=== PATIENT | male | born 1945 | race Caucasian/White ===

== ENCOUNTER 2021-10-03 19:09 | Inpatient (IN) | payer OTHER ==
[~2021-10-03] VITALS: Ht 165.1 cm; Wt 66.7 kg
[2021-10-03] MEDS ORDERED: ALBUTEROL SULFATE 2.5 MG/ 0.5 ML NEBU NEB ONE (19:15)
[2021-10-03] MEDS ORDERED: MAGNESIUM SULFATE 2 GM in IV DEXTROSE 5% 100 ML IV ONE (19:15)
[2021-10-03] MEDS ORDERED: IPRATROPIUM BROMIDE 0.5 MG/2.5 ML NEBU NEB ONE (19:15)
[2021-10-03 19:29] LABS: HEMATOCRIT 57.5 % (36.7-47.1); MEAN CORPUSCULAR HEMOGLOBIN 29.2 uug (23.8-33.4); MEAN CORPUSCULAR VOLUME 91.1 fL (73.0-96.2); PLATELET COUNT (AUTO) 181 K/uL (152-348)
[2021-10-03 19:37] LABS: CARBON DIOXIDE 24 mmol/L (21-32); CHLORIDE 106 mmol/L (98-107); CREATININE 1.8 mg/dL (0.6-1.3); GLUCOSE 256 mg/dL (74-106); POTASSIUM 4.6 mmol/L (3.5-5.1); UREA NITROGEN, BLOOD 37 mg/dL (7-18)
[2021-10-03 19:51] LABS: ALANINE AMINOTRANSFERASE 65 U/L (16-63); ALKALINE PHOSPHATASE 98 U/L (50-136); ASPARTATE AMINOTRANSFERASE 57 U/L (15-37); BILIRUBIN,DIRECT 0.1 mg/dL (0.0-0.2); BILIRUBIN,TOTAL 0.6 mg/dL (0.2-1.0); TOTAL PROTEIN, SERUM 8.5 g/dL (6.4-8.2)
[2021-10-03 19:57] LABS: ABG BASE EXCESS -8.6 mmol/L; ABG PCO2 46.8 mmHg (35.0-45.0); ABG PH 7.227 (7.350-7.450); ABG PO2 464.5 mmHg (75.0-100.0); ABG SITE RIGHT RADIAL; ABG TOTAL HEMOGLOBIN 17.9 G/dL (13.5-18.0); COHb 0.3 % (0.5-1.5); MetHb 0.5 % (0.0-1.5); O2Hb 99.2 % (94.0-97.0)
[2021-10-03] MEDS ORDERED: FUROSEMIDE 40 MG/4 ML VIAL IV ONE (20:00)
--- NOTE | 2021-10-03 20:00 | NUR ---
Patient on Bipap with 50% of 02 satting at 97%. Patient denies CP but C/O SOB.
[2021-10-03] MEDS ORDERED: MAGNESIUM SULFATE/D5W 200 ML ONE (20:04)
[2021-10-03] MEDS ORDERED: FUROSEMIDE 40 MG/4 ML VIAL ONE (20:04)
[2021-10-03] MEDS ORDERED: IPRATROPIUM BROMIDE 0.5 MG/2.5 ML NEBU ONE (20:06)
[2021-10-03] MEDS ORDERED: ALBUTEROL SULFATE 2.5 MG/ 0.5 ML NEBU ONE ×2 (20:06→20:10)
[2021-10-03] MEDS ORDERED: AMLO2.5T4 PO (21:00)
[2021-10-03] MEDS ORDERED: ATOR40TA PO (21:00)
[2021-10-03] MEDS ORDERED: CARV25TA PO (21:00)
[2021-10-03] MEDS ORDERED: LOSA50TA3 PO (21:00)
[2021-10-03] MEDS ORDERED: ASPI81TA31 PO (21:00)
[2021-10-03] MEDS ORDERED: ENOXAPARIN SODIUM 80 MG/0.8 ML DISP.SYRIN SQ ONE (21:30)
[2021-10-03 22:17] LABS: ABG BASE EXCESS -1.9 mmol/L; ABG HCO3 22.3 mmol/L; ABG PCO2 36.9 mmHg (35.0-45.0); ABG PH 7.399 (7.350-7.450); ABG PO2 80.3 mmHg (75.0-100.0); ABG SITE RIGHT RADIAL; ABG TOTAL HEMOGLOBIN 16.6 G/dL (13.5-18.0); COHb 0.3 % (0.5-1.5); MetHb 0.6 % (0.0-1.5); O2Hb 95.1 % (94.0-97.0); VENT MODE BIPAP
--- NOTE | 2021-10-04 00:10 | NUR ---
Patient accepted by Annemarie Salas CRIMINAL INTELLIGENCE ANALYST to [facility].
[2021-10-04] MEDS ORDERED: ACETAMINOPHEN 325 MG TABLET PO PRN (00:30)
[2021-10-04] MEDS ORDERED: MAGNESIUM HYDROXIDE 30 ML LIQUID UDC PO PRN (00:30)
[2021-10-04] MEDS ORDERED: REMEDY ESSENTIAL ZINC PASTE 113 GM TP PRN (00:30)
[2021-10-04] MEDS ORDERED: ONDANSETRON 4 MG/2 ML VIAL IV PRN (00:30)
[2021-10-04] MEDS ORDERED: CEFTRIAXONE 1 G in IV DEXTROSE 5% 50 ML IV SCH (00:30)
--- NOTE | 2021-10-04 02:00 | NUR ---
RECEIVED PATIENT FROM AYLA WHEELER RN , DX: ACUTE RESP.DISTRESS . PATIENT AAOX4/ MAEX4. PATIENT ON BIPAP FIO2-40% ,12/5 RATE 18 . SATURATION 98% PATIENT SR ON THE HEART MONITOR RATE 60, HX: OF PACEMAKER AND BYPASS SURGERY X4. PATIENT DENIES CHEST PAIN .
[2021-10-04 02:28] VITALS: BP 128/81
[2021-10-04 02:59] LABS: *BILIRUBIN,URIN NEGATIVE (NEGATIVE); *BLOOD, URINE 3+ (NEGATIVE); *KETONES,URINE NEGATIVE (NEGATIVE); *UROBILINOGEN,URINE 0.2 E.U./dl (NORMAL); LEUKOCYTE ESTERASE ,URINE NEGATIVE (NEGATIVE); NITRITE, URINE NEGATIVE (NEGATIVE); UGLUCOSE NEGATIVE (NEGATIVE)
[2021-10-04 03:00] LABS: *CLARITY,URINE HAZY (CLEAR); *COLOR,URINE STRAW (YELLOW)
[2021-10-04 03:05] LABS: BACTERIA,URINE NONE SEEN /HPF (NONE SEEN); RBC,URINE 80-100 /HPF (0-3); SQUAMOUS EPITHELIAL CELL,UR FEW /HPF (NONE SEEN); WBC,URINE 0-3 /HPF (0-3)
[2021-10-04 03:20] LABS: *AMPHETAMINE, URINE NEGATIVE (NEGATIVE); *CANNABINOID, URINE NEGATIVE (NEGATIVE); *COCCAINE, URINE NEGATIVE (NEGATIVE); *OPIATE, URINE NEGATIVE (NEGATIVE); *PHENCYCLIDINE SCREEN,URINE NEGATIVE (NEGATIVE)
[2021-10-04 03:30] VITALS: BP 115/78
[2021-10-04] MEDS ORDERED: CEFTRIAXONE /D5W 50ML IVPB **ER PYXIS IV ONE (03:37)
--- NOTE | 2021-10-04 04:10 | NUR ---
RESPIRATORY THERAPIST TOOK PATIENT OFF BIPAP . PER HERNESTO CHIANG ORDER . PATIENT NOW ON ROOM AIR ,SATURATION 95 TO 96%.
--- NOTE | 2021-10-04 04:13 | NUR ---
DR: MARIIA AT B/S AND SPOKED WITH PATIENT . PATIENT IS OFF BIPAP , NOW ON ROOM AIR SATURATION 95%, NO SOB NOTED .
--- NOTE | 2021-10-04 04:21 | NUR ---
Bipap was D/C'ed per Dr Berry order and placed on 2liters N/C.
--- NOTE | 2021-10-04 04:23 | NUR ---
placed on nasal cannula c/o saturation 93 to 94%, now on nasal cannula at 2 l/min .
--- NOTE | 2021-10-04 06:00 | NUR ---
Patient has one $1.00; two $10.00; seventeen $20.00, and four $100.00 bills in his possession. Patient refused to have any valuable placed in safe.
--- NOTE | 2021-10-04 06:00 | NUR ---
Patient ambulatory with steady gait to restroom with no distress noted.
--- NOTE | 2021-10-04 06:14 | NUR ---
Patient outof unit for nuclear lung scan via wheelchair with no distress noted.
--- NOTE | 2021-10-04 06:50 | NUR ---
TRansfered to 3rd floor room 314, Tele TD.
[2021-10-04 07:00] VITALS: BP 151/87
[2021-10-04 08:00] VITALS: BP 151/87
--- NOTE | 2021-10-04 08:00 | NUR ---
AWAKE ALERT AND ORINETED X3 NO SS OF DISTRESS WITH 3L NC SATURATING 100%, DENIES PAIN. CONTINUE WITH BEATRIZ MONITORING
[2021-10-04] MEDS: ASPIRIN 81 MG TAB.CHEW PO SCH (08:51)
[2021-10-04] MEDS: CARVEDILOL 25 MG TABLET PO SCH ×2 (08:52→16:55)
[2021-10-04] MEDS: LOSARTAN POTASSIUM 50 MG TABLET PO SCH (08:52)
[2021-10-04] MEDS: ENOXAPARIN SODIUM 60 MG/0.6 ML DISP.SYRIN SQ SCH ×2 (08:53→20:38)
[2021-10-04] MEDS ORDERED: CARVEDILOL 25 MG TABLET PO SCH (09:00)
--- NOTE | 2021-10-04 12:25 | NUR ---
SEEN BY DR ARDON WITH ORDER TO CHANGE STATUS TO TELE
[2021-10-04] MEDS ORDERED: IPRATROPIUM/ALBUTEROL SULFATE 14.7 GM INHALER INH SCH (13:30)
[2021-10-04] MEDS ORDERED: IPRATROPIUM BROMIDE 0.5 MG/2.5 ML NEBU NEB PRN (13:45)
[2021-10-04] MEDS ORDERED: ALBUTEROL SULFATE 2.5 MG/ 0.5 ML NEBU NEB PRN (13:45)
[2021-10-04 15:19] VITALS: BP 94/64
--- NOTE | 2021-10-04 16:32 | NUR ---
CONTINUE TELE STATUS PACING ON MONITOR, DENIES CHEST PAIN.
[2021-10-04 19:47] LABS: *BILIRUBIN,URIN NEGATIVE (NEGATIVE); *BLOOD, URINE 3+ (NEGATIVE); *CLARITY,URINE SLIGHTLY CLOUDY (CLEAR); *COLOR,URINE DARK YELLOW (YELLOW); *KETONES,URINE NEGATIVE (NEGATIVE); *UROBILINOGEN,URINE 0.2 E.U./dl (NORMAL); LEUKOCYTE ESTERASE ,URINE NEGATIVE (NEGATIVE); NITRITE, URINE NEGATIVE (NEGATIVE); PH,URINE 5.5 (5.0-8.0); UGLUCOSE NEGATIVE (NEGATIVE)
[2021-10-04 19:56] LABS: *CREATININE,URINE 116.1 mg/dL (30-125)
[2021-10-04 20:00] VITALS: BP 109/71
[2021-10-04 20:05] LABS: RBC,URINE TNTC /HPF (0-3)
[2021-10-04 20:06] LABS: BACTERIA,URINE NONE SEEN /HPF (NONE SEEN); SQUAMOUS EPITHELIAL CELL,UR FEW /HPF (NONE SEEN); WBC,URINE 0-3 /HPF (0-3)
[2021-10-04] MEDS: ATORVASTATIN 20 MG TABLET PO SCH (20:35)
[2021-10-04] MEDS: AMLODIPINE 2.5 MG TABLET PO SCH (20:35)
[2021-10-04] MEDS ORDERED: ATORVASTATIN 40 MG TABLET PO SCH (21:00)
[2021-10-05] VITALS: BP 136/77
[2021-10-05] MEDS: CEFTRIAXONE 1 G in IV DEXTROSE 5% 50 ML IV SCH (03:09)
[2021-10-05 04:00] VITALS: BP 154/81
[2021-10-05 05:44] LABS: ABG BASE EXCESS 2.4 mmol/L; ABG HCO3 25.1 mmol/L; ABG PCO2 33.9 mmHg (35.0-45.0); ABG PH 7.488 (7.350-7.450); ABG PO2 89.7 mmHg (75.0-100.0); ABG SITE RIGHT RADIAL; ABG TOTAL HEMOGLOBIN 16.5 G/dL (13.5-18.0); COHb 0.4 % (0.5-1.5); MetHb 0.3 % (0.0-1.5); O2Hb 96.6 % (94.0-97.0); VENT MODE Room Air
--- NOTE | 2021-10-05 06:51 | NUR ---
Patient left in bed resting comfortably. AAOX4. vitals stable. IV access patent.
[2021-10-05 07:15] LABS: MEAN CORPUSCULAR HEMOGLOBIN 29.8 uug (23.8-33.4); MEAN CORPUSCULAR VOLUME 89.3 fL (73.0-96.2); PLATELET COUNT (AUTO) 134 K/uL (152-348)
[2021-10-05 07:59] LABS: ALANINE AMINOTRANSFERASE 41 U/L (16-63); ALKALINE PHOSPHATASE 59 U/L (50-136); ASPARTATE AMINOTRANSFERASE 25 U/L (15-37); BILIRUBIN,TOTAL 0.8 mg/dL (0.2-1.0); CARBON DIOXIDE 28 mmol/L (21-32); CHLORIDE 105 mmol/L (98-107); CHOLESTEROL 130 mg/dL (<200); CREATININE 1.4 mg/dL (0.6-1.3); GLUCOSE 104 mg/dL (74-106); HDL CHOLESTEROL 51 mg/dL (40-60); TOTAL PROTEIN, SERUM 6.9 g/dL (6.4-8.2); TRIGLYCERIDES 134 MG/DL (30-150); UREA NITROGEN, BLOOD 28 mg/dL (7-18)
--- NOTE | 2021-10-05 08:00 | NUR ---
resting in bed, on r/a, denies of shortness of breath, explained plan of care- verbalized understanding, tele V paced, up and about in the room, needs attended and safety measures maintained, call light within reach
[2021-10-05 08:07] LABS: IRON, SERUM 106 ug/dL (50-175)
[2021-10-05 09:05] LABS: MAGNESIUM 2.2 mg/dL (1.8-2.4); PHOSPHOROUS 3.5 mg/dL (2.5-4.9); THYROID STIMULATING HORMONE 1.314 mIU/mL (0.358-3.740)
[2021-10-05] MEDS: ASPIRIN 81 MG TAB.CHEW PO SCH (09:16)
[2021-10-05] MEDS: ENOXAPARIN SODIUM 60 MG/0.6 ML DISP.SYRIN SQ SCH ×2 (09:19→20:33)
[2021-10-05] MEDS: LOSARTAN POTASSIUM 50 MG TABLET PO SCH (09:25)
[2021-10-05] MEDS: CARVEDILOL 25 MG TABLET PO SCH ×2 (09:26→17:44)
[2021-10-05] MEDS ORDERED: SWABABLE VALVE TRANSFER SET EA MC ONE (10:07)
[2021-10-05] MEDS ORDERED: IV NORMAL SALINE 250 ML IV ONE (10:07)
[2021-10-05] MEDS ORDERED: IOHEXOL 350 100 ML INFUS..BTL ONE (10:07)
[2021-10-05] MEDS: GUAIFENESIN LA 600 MG TABLET.SA PO SCH ×2 (10:18→20:29)
--- NOTE | 2021-10-05 10:30 | NUR ---
to Xray dept for CTA chest
[2021-10-05 11:39] VITALS: BP 98/74
--- NOTE | 2021-10-05 13:00 | NUR ---
us kidney done in the room
[2021-10-05] MEDS: ALBUTEROL SULFATE 2.5 MG/3 ML NEBU NEB SCH ×2 (14:04→19:50)
[2021-10-05] MEDS: IPRATROPIUM BROMIDE 0.5 MG/2.5 ML NEBU NEB SCH ×2 (14:04→19:50)
[2021-10-05 15:56] VITALS: BP 116/62
--- NOTE | 2021-10-05 19:02 | NUR ---
resting in bed, no distress noted, remains on r/a , tele v paced, all needs attended and met, call light within reach
--- NOTE | 2021-10-05 19:30 | NUR ---
Received patient lying in bed. AAOx4. In no acute distress. Denies any pain or SOB. Reported still with occasional dry, non-productive cough. O2 sat at 97% on RA. V pacing on tele with HR of 66/min. Needs assessed and attended to. Safety measure initiated and call light within reached.
[2021-10-05 20:00] VITALS: BP 142/63
[2021-10-05] MEDS: ATORVASTATIN 20 MG TABLET PO SCH (20:29)
[2021-10-05] MEDS: AMLODIPINE 2.5 MG TABLET PO SCH (20:34)
[2021-10-06] VITALS: BP 150/75
[2021-10-06] MEDS: CEFTRIAXONE 1 G in IV DEXTROSE 5% 50 ML IV SCH (02:10)
[2021-10-06 04:00] VITALS: BP 155/78
--- NOTE | 2021-10-06 06:31 | NUR ---
No adverse effect noted from IV antibiotic. PIV on left FA remains intact and patent. V pacing on tele with HR of 65/min. Occasional non-productive cough. Needs attended to and met. Safety measure maintained and call light within reached.
[2021-10-06 07:12] LABS: HEMATOCRIT 50.6 % (36.7-47.1); MEAN CORPUSCULAR HEMOGLOBIN 30.1 uug (23.8-33.4); MEAN CORPUSCULAR VOLUME 89.1 fL (73.0-96.2); PLATELET COUNT (AUTO) 146 K/uL (152-348)
[2021-10-06 07:25] LABS: CARBON DIOXIDE 30 mmol/L (21-32); CHLORIDE 103 mmol/L (98-107); CREATININE 1.5 mg/dL (0.6-1.3); GLUCOSE 102 mg/dL (74-106); PHOSPHOROUS 3.7 mg/dL (2.5-4.9); POTASSIUM 3.9 mmol/L (3.5-5.1); UREA NITROGEN, BLOOD 24 mg/dL (7-18)
[2021-10-06] MEDS: ALBUTEROL SULFATE 2.5 MG/3 ML NEBU NEB SCH ×2 (07:52→13:30)
[2021-10-06] MEDS: IPRATROPIUM BROMIDE 0.5 MG/2.5 ML NEBU NEB SCH ×2 (07:52→13:30)
--- NOTE | 2021-10-06 08:00 | NUR ---
resting in bed, states feels better, on room air, denies of dyspnea, denies of pain, tele V paced, wants to go home today, up and about in the room, safety measures in place, call light within reach
[2021-10-06] MEDS: LOSARTAN POTASSIUM 50 MG TABLET PO SCH (08:09)
[2021-10-06] MEDS: CARVEDILOL 25 MG TABLET PO SCH (08:09)
[2021-10-06] MEDS: ASPIRIN 81 MG TAB.CHEW PO SCH (08:09)
[2021-10-06] MEDS: GUAIFENESIN LA 600 MG TABLET.SA PO SCH (08:09)
[2021-10-06] MEDS: ENOXAPARIN SODIUM 60 MG/0.6 ML DISP.SYRIN SQ SCH (08:10)
[2021-10-06] MEDS ORDERED: AMLO2.5T2 PO (10:42)
[2021-10-06] MEDS ORDERED: AMOX-427 PO (10:42)
[2021-10-06] MEDS ORDERED: AMLODIPINE 2.5 MG TABLET PO SCH ×2 (10:43→21:00)
[2021-10-06] MEDS ORDERED: AMLODIPINE 5 MG TABLET PO SCH (10:45)
[2021-10-06] MEDS ORDERED: ALBU6.7H9 INH (11:05)
[2021-10-06] MEDS ORDERED: AMLO-212 PO (11:05)
--- NOTE | 2021-10-06 11:15 | NUR ---
Dr Cardenas saw pt and pt is going home.
--- NOTE | 2021-10-06 11:50 | NUR ---
discharge instructions given, verbalized understanding, tele discontinued, saline lock removed- no swelling/redness noted on site, states friend to pick him up
[2021-10-06 12:28] VITALS: BP 146/64
--- NOTE | 2021-10-06 12:35 | NUR ---
friend here, escorted to car per w/c in stable condition with all belongings
[2021-10-07] MEDS ORDERED: AMLODIPINE 5 MG TABLET PO SCH (09:00)
== END 2021-10-06 12:35 | disposition home or self-care (01) | DRG 871 ==
LOC: ER 19:09 → TRANSITION 10-04 00:15 → TELE-TD3 10-04 06:24 → TELE3 10-04 12:32
PROVIDERS: ADMIT Internal Medicine; ATTEND Internal Medicine
PROC: 5A09357 Assistance with Respiratory Ventilation, Less than 24 Consecutive Hours, Continuous Positive Airway Pressure (ICD-10-PCS; principal; 2021-10-03)
DX: A41.9 Sepsis, unspecified organism (principal); I50.43 Acute on chronic combined systolic (congestive) and diastolic (congestive) heart failure; J96.01 Acute respiratory failure with hypoxia; N17.0 Acute kidney failure with tubular necrosis; J18.9 Pneumonia, unspecified organism; J96.02 Acute respiratory failure with hypercapnia; I13.0 Hypertensive heart and chronic kidney disease with heart failure and stage 1 through stage 4 chronic kidney disease, or unspecified chronic kidney disease; J44.1 Chronic obstructive pulmonary disease with (acute) exacerbation; I24.9 Acute ischemic heart disease, unspecified; E87.2 Acidosis; J44.0 Chronic obstructive pulmonary disease with (acute) lower respiratory infection; D56.9 Thalassemia, unspecified; D75.1 Secondary polycythemia; E11.22 Type 2 diabetes mellitus with diabetic chronic kidney disease; I25.10 Atherosclerotic heart disease of native coronary artery without angina pectoris; I25.5 Ischemic cardiomyopathy; M06.9 Rheumatoid arthritis, unspecified; K21.9 Gastro-esophageal reflux disease without esophagitis; N18.2 Chronic kidney disease, stage 2 (mild); Z87.442 Personal history of urinary calculi; Z95.1 Presence of aortocoronary bypass graft; Z87.891 Personal history of nicotine dependence; Z87.01 Personal history of pneumonia (recurrent); Z95.0 Presence of cardiac pacemaker; D46.9 Myelodysplastic syndrome, unspecified; K76.0 Fatty (change of) liver, not elsewhere classified; Z20.822 Contact with and (suspected) exposure to COVID-19; R74.01 Elevation of levels of liver transaminase levels; I35.0 Nonrheumatic aortic (valve) stenosis; N40.0 Benign prostatic hyperplasia without lower urinary tract symptoms; I44.7 Left bundle-branch block, unspecified; N28.1 Cyst of kidney, acquired
CPT/HCPCS: 36415; 36600; 71045; 71275; 76770; 78580; 83550; 83605; 83735; 84100; 84300; 84443; 84484; 85025; 85730; 86140; 87086; 93005; 93307; 94640; 94660; 94664; A4663; A9540; G0378; J0696; J1650; J1940; J3475; J3590; Q9967